=== PATIENT | female | born 1960 | race Caucasian/White ===

== ENCOUNTER 2018-12-06 11:06 | Emergency (ER) | payer OTHER ==
--- NOTE | 2019-01-03 13:20 | ED Physician Chart ---
ED Chief Complaint/HPI - Patient Information Date Seen:: 12/06/18 Time Seen:: 11:30 Chief Complaint:: aggitaation [facility] unable to manage Allergies:: Allergies Allergy/AdvReac Type Severity Reaction Status Date / Time No Known Allergies Allergy Verified 12/06/18 11:28 Historian:: EMS, Medical Records Review:: Nurse's Note Reviewed ED Review of Systems - Review of Systems General/Constitutional: No fever ED Past Medical History - Past Medical History Past Medical History: Asthma/COPD, Other (psyce) Surgical History: None (unreliable) Family Medical History - Family Member Mother History Unknown: Yes ED Physical Exam - Physical Examination General/Constitutional: No distress, Non-toxic appearing Head: Atraumatic Eyes: Lids, conjuctiva normal Skin: Nl inspection ENMT: TM canals nl Neck: Nontender Respiratory: Nl effort/Exclusion Cardio Vascular: RRR GI: No tenderness/rebounding/guarding : No CVA tenderness Extremities: No edema (no focal sign) Misc: Normal back ED Assessment - Assessment General Assessment: psche break non critical ED Septic Shock - . Is Septic Shock (SBP<90, OR Lactate>4 mmol\L) present?: No ED Reassessment (Disposition) - Reassessment Reassessment Condition:: Improved (stable for transfer ) - Patient Disposition Discharge/Transfer:: Residential/Boarding Care (pt stable return to facility)
== END 2018-12-06 16:19 ==
LOC: ER 11:06
DX: R45.1 Restlessness and agitation (principal); J44.9 Chronic obstructive pulmonary disease, unspecified
CPT/HCPCS: Z7502